=== PATIENT | male | born 1930 | race Caucasian/White ===

== ENCOUNTER → 2016-05-27 | Outpatient (CLI) | payer MEDICARE ==
[~2016-05-27] MED LIST: AMLODIPINE-BENA1 CA3 PO; ASPIRIN81 M2 PO; ASPIRIN81 MG PO; B-COMPLEX-VITA1 EACH PO; BRILINTA90 MG PO; CORDARONE200 M1 PO; FUROSEMIDE40 MG PO; HYDROCHLOROTHIA25 MG PO; KLOR-CON PO; LIPITOR20 MG PO; LOPRESSOR PO; NITROGLYCERIN0.4 MG SL; NITROSTAT0.4 MG SL; SPIRIVA18 MCG INH; SYMBICORT INH; TOPROL XL50 MG PO
[2016-05-27 12:52] LABS: CREATININE SERUM 1.6 mg/dL (0.6-1.4)
== END | disposition home or self-care (01) ==
LOC: CLAB 11:49
PROVIDERS: Registered Nurse
DX: I71.4 Abdominal aortic aneurysm, without rupture (principal)
CPT/HCPCS: 36415; 82565; 84520

== ENCOUNTER → 2016-06-17 | Outpatient (CLI) | payer MEDICARE ==
[2016-06-17 09:31] LABS: POC - CREATININE 1.39 mg/dL (0.64-1.27)
== END | disposition home or self-care (01) ==
LOC: CCAT 08:22
PROVIDERS: Registered Nurse
DX: I71.4 Abdominal aortic aneurysm, without rupture (principal)
CPT/HCPCS: 82565

== ENCOUNTER → 2016-06-24 | Outpatient (CLI) | payer MEDICARE ==
--- NOTE | ~2016-06-24 | US10 ---
[id number] [facility] [address] [place] [place], [place] [address] [id number] O MR#: [id number] Acc #: [id number] NAME: CHANNING LIPSCOMB : 1930 SEX: M STUDY DATE/TIME: 06/24/2016 9:51 UNIT: [facility]US ROOM: STUDY DESCRIPTION: US Aorta Complete Attending Physician: Geo Polanco Aprn Referring Physician: Geo Polanco Aprn Ordering Physician: Geo Polanco Aprn Primary Care Physician: Preeti Horn M.D. MEDICAL IMAGING REPORT This report is preliminary unless electronic signature is present EXAM Abdominal aortic ultrasound, 06/24/2016. INDICATIONS 85-year-old male with history of abdominal aortic aneurysm. Hyperlipidemia. TECHNIQUE Sonographic imaging of the abdominal aorta was performed utilizing maher-scale color Doppler spectral analysis. COMPARISON Correlation is made with CT of the chest, abdomen, pelvis 11/27/2015. FINDINGS There is aneurysmal dilatation of the [id number] abdominal aorta. The aorta is tortuous, which makes measurements technically challenging, particularly with ultrasound. However, maximum diameter in the mid to distal abdominal aorta is probably on the order about 4.9 cm. On the most recent CT angiography study of 11/27/2015, maximum diameter was also in the range of about 4.9 cm. There is no distinct evidence of extension of the aneurysm into either common iliac artery. The more proximal aspects of the aorta are mildly aneurysmal at 3 cm. There is a combination of calcified and noncalcified atherosclerotic plaque. Aortic waveforms are within normal range. IMPRESSION 1. Aneurysmal dilatation of the mid to distal abdominal aorta. The aorta is tortuous and measurements are challenging with ultrasound, but maximum diameter is probably on the order of about 4.9 cm, similar to the most recent CT. 2. The more proximal aspects of the aorta are borderline to mildly aneurysmal in the range of 3 cm. 3. There were 1 or 2 measurements of the aorta that measured greater than 5 cm. These are felt to be somewhat artifactual due to the tortuous nature of the aorta and the infinite number of scan planes that could be obtained with ultrasound through such a tortuous aorta. Dictated by... Mark Anthony Mccoy M.D. THIS IS AN ELECTRONICALLY VERIFIED REPORT Mark Anthony Mccoy M.D. at 06/24/2016 4:31 PM Bettie TD: 06/24/2016 13:38 JOB #: [id number] MEDICAL IMAGING REPORT Page 1 of 1 COPY
== END | disposition home or self-care (01) ==
LOC: CGUS 09:25
DX: I71.4 Abdominal aortic aneurysm, without rupture (principal); E78.5 Hyperlipidemia, unspecified
CPT/HCPCS: 76770

== ENCOUNTER → 2016-07-19 | Outpatient (CLI) | payer MEDICARE ==
[2016-07-19 13:12] LABS: ALBUMIN SERUM 4.1 g/dL (3.5-5.0); BILIRUBIN,TOTAL 0.2 mg/dL (0.2-2.0); BUN/CREATININE RATIO 13.12; CREATININE SERUM 1.6 mg/dL (0.6-1.4); PHOSPHOROUS 3.6 mg/dL (2.5-4.6); POTASSIUM 3.7 mmol/L (3.5-5.1); PROTEIN TOTAL SERUM 7.1 g/dL (6.0-8.3)
[2016-07-23 19:19] LABS: CALCIUM (PTHINTACT) 9.4 mg/dL (8.6-10.3)
== END | disposition home or self-care (01) ==
LOC: CLAB 11:52
PROVIDERS: Internal Medicine Nephrology
DX: I12.9 Hypertensive chronic kidney disease with stage 1 through stage 4 chronic kidney disease, or unspecified chronic kidney disease (principal); N18.3 Chronic kidney disease, stage 3 (moderate)
CPT/HCPCS: 36415; 80053; 82310; 83970; 84100